=== PATIENT | female | born 1980 | race Two or more races ===

== ENCOUNTER 2022-11-20 16:05 | Inpatient (IN) | payer BC ==
[~2022-11-20] VITALS: Ht 162.6 cm; Wt 57.6 kg
[2022-11-20] MEDS ORDERED: normal saline 1000ML IV soln IVB ONE (16:20)
[2022-11-20] MEDS ORDERED: morphine 4 MG/ML inj SYRINge IV PRN ×2 (16:20→21:40)
[2022-11-20] MEDS ORDERED: ondansetron/PF 4mg/2ml inj IV ONE (16:20)
[2022-11-20 16:55] LABS: BASOPHILS % (AUTO) 0.2 % (0-1); EOSINOPHILS % (AUTO) 0 % (0-6); HEMATOCRIT 46.9 % (35.0-45.0); HEMOGLOBIN 15.4 g/dl (12.0-16.0); LYMPHOCYTES # (AUTO) 0.6 X10'3 (1.1-4.8); LYMPHOCYTES % (AUTO) 3.4 % (21-51); MEAN CORPUSCULAR HEMOGLOBIN 31.2 PG (27.0-31.0); MEAN CORPUSCULAR HGB CONC 32.8 g/dL (33.0-36.5); MEAN CORPUSCULAR VOLUME 95.1 FL (78-98); MEAN PLATELET VOLUME 6.7 FL (7.4-10.4); MONOCYTES % (AUTO) 5.4 % (2-12); NEUTROPHILS # (AUTO) 16.4 X10'3 (1.8-7.7); PLATELET COUNT 427 X10'3 (140-440); RED BLOOD COUNT 4.93 X10'6 (4.20-5.60); RED CELL DISTRIBUTION WIDTH 14.5 % (11.5-14.5)
[2022-11-20 17:03] LABS: ALANINE AMINOTRANSFERASE 30 U/L (12-78); ALBUMIN 2.7 G/DL (3.4-5.0); ALBUMIN/GLOBULIN RATIO 0.5 (1.1-1.5); ALKALINE PHOSPHATASE 115 IU/L (46-116); ANION GAP 9 (8-16); ASPARTATE AMINO TRANSFERASE 34 U/L (10-37); BILIRUBIN,TOTAL 0.5 MG/DL (0.1-1.0); BLOOD UREA NITROGEN 15 MG/DL (7-18); BUN/CREATININE RATIO 17.4 (6.6-38.0); CALCIUM 9.7 MG/DL (8.5-10.1); CHLORIDE 93 MMOL/L (99-107); CREATININE 0.86 MG/DL (0.40-0.90); GLUCOSE 106 MG/DL (70-104); POTASSIUM 4.1 MMOL/L (3.5-5.1); SODIUM 130 MMOL/L (135-145); TOTAL CARBON DIOXIDE 27.9 MMOL/L (24-32); TOTAL PROTEIN 8.3 G/DL (6.4-8.2); eGFR 73 ML/MIN
[2022-11-20 17:25] LABS: PLATELET ESTIMATE NORMAL; TOTAL CELLS COUNTED 100
[2022-11-20] MEDS ORDERED: levoFLOXACIN-Levaquin 500mg/D5 100 ML IV ONE (18:20)
[2022-11-20] MEDS ORDERED: iohexol 300mg/ml 100ml inj. ONE (18:20)
[2022-11-20 18:57] LABS: HCG SERUM QL NEGATIVE
[2022-11-20 19:03] LABS: CLARITY,URINE SLIGHTLY CLOUDY (Clear); COLOR,URINE YELLOW (Yellow); GLUCOSE, URINE NEGATIVE (Neg); KETONES,URINE >=80 mg/dl (Neg); LEUKOCYTE ESTERASE ,URINE NEGATIVE (Neg); NITRITES, URINE NEGATIVE (Neg); OCCULT BLOOD,URINE MODERATE (Neg); PROTEIN,URINE 100 mg/dl (Neg); UROBILINOGEN,URINE 0.2 E.U/dL (0.2-1.0)
[2022-11-20 19:09] LABS: UA COLLECTION TYPE CLN CATCH MIDSTREAM
[2022-11-20 19:11] LABS: BACTERIA,URINE 2+ /HPF (Neg); MUCUS STRANDS FEW /LPF (Neg); SQUAMOUS EPITHELIAL CELL,UR MANY /LPF (FEW); TRANSITIONAL EPI CELLS,URINE FEW /HPF
[2022-11-20 19:12] LABS: RBC,URINE 0-2 /HPF (0-2); WBC,URINE 0-4 /HPF (0-4)
[2022-11-20] MEDS ORDERED: metroNIDAZOLE-Flagyl 500mg/NS 100 ML IV STA (20:24)
[2022-11-20] MEDS ORDERED: CefTRIAXone 2gm/D5W 50ml BAG 50 ML IV ONE (20:25)
[2022-11-20] MEDS ORDERED: ringers solution, lactated 1000ml IV soln IV ONE (20:25)
[2022-11-20] MEDS ORDERED: NO HOME MEDS (21:15)
[2022-11-20] MEDS ORDERED: HYDROmorphone inj. 0.5 MG/0.5 ML DISP.SYRIN IV PRN (21:15)
[2022-11-20] MEDS ORDERED: potassium Cl 20 mEq SR tablet PO PRN ×2 (21:15)
[2022-11-20] MEDS ORDERED: magnesium 4gm in 100ml NS 100 ML IV PRN (21:15)
[2022-11-20] MEDS ORDERED: magnesium Cl slow-release 64mg tablet PO PRN (21:15)
[2022-11-20] MEDS ORDERED: ondansetron/PF 4mg/2ml inj IV PRN ×2 (21:15→21:40)
[2022-11-20] MEDS ORDERED: morphine 2 MG/ML inj. syringe IV PRN ×3 (21:15→21:40)
[2022-11-20] MEDS ORDERED: HYDROcodone/acetaminophen 10/325mg tab PO PRN (21:15)
[2022-11-20] MEDS ORDERED: HYDROmorphone/PF 0.2 MG/ML SYRINGE IV PRN (21:15)
[2022-11-20] MEDS ORDERED: acetaminophen 325mg tablet PO PRN ×2 (21:15)
[2022-11-20] MEDS ORDERED: potassium Cl 40MEQ/1/2NS 520ml 520 ML IV PRN (21:15)
[2022-11-20] MEDS ORDERED: HYDROcodone/acetaminophen 5mg/325mg tablet PO PRN (21:15)
[2022-11-20] MEDS ORDERED: BUPIVAcaine/PF 2.5 mg/ml (0.25%) 30ml vial ONE ×2 (21:37→21:38)
[2022-11-20] MEDS ORDERED: LIDOcaine 1% 30ml preserv. free vial ONE (21:37)
[2022-11-20] MEDS ORDERED: BUPIVACAINE liposomal/PF 13.3 MG/ML vial IM ONE (21:38)
[2022-11-20] MEDS ORDERED: proCHLORperazine 10 MG/2 ml inj IV PRN (21:40)
[2022-11-20] MEDS ORDERED: meperidine/PF 25mg/ml syringe IV PRN (21:40)
[2022-11-20] MEDS ORDERED: ringers solution, lacted 1,000 ML IV SCH (21:40)
[2022-11-20] MEDS ORDERED: fentaNYL /PF 50mcg/ml 5ml ampule ONE (21:44)
[2022-11-20] MEDS ORDERED: rocuronium 10mg/ml inj IV ONE (21:44)
[2022-11-20] MEDS ORDERED: midazolam 1 mg/ML 2ml injection ONE (21:44)
[2022-11-20] MEDS ORDERED: propofol inj 20 ML IV ONE (21:44)
[2022-11-20] MEDS ORDERED: sevoflurane 250ml liquid IH ONE (21:57)
[2022-11-20] MEDS ORDERED: sugammadex 200mg/2ml injection IV ONE (23:48)
[2022-11-21] VITALS (30 sets, daily range): BP systolic 117–146; BP diastolic 75–95
--- NOTE | 2022-11-21 00:06 | NUR ---
Received from OR via BED, accompanied by Anesthesiologist DR PONCE and report given by Anesthesiologist AND MEDICATION COORDINATOR. PT DROWSY, PAINFUL. ABDOMEN W/WOUND VAC W/BLACK FOAM W/CLEAR DRSG COVERING INTACT, S/S DRAINAGE IN TUBING. SETTINGS 100 LCS. ORTIZ CATHETER TO GRAVITY DRAINAGE W/YELLOW URINE IN DRAINAGE BAG. NGT TO RIGHT NARE LCS W/BROWN/YELLOW DRAINAGE IN TUBING. PTS INTO SEE PT. Addendum: 11/21/22 at 0044 by Kala Barros RN Amended: Links added.
[2022-11-21] MEDS: meperidine/PF 25mg/ml syringe IV PRN ×4 (00:17→01:37)
[2022-11-21] MEDS ORDERED: naloxone 0.4 mg/ml inj IV PRN ×2 (00:20→20:50)
[2022-11-21] MEDS ORDERED: HYDROmorph/NS 0.2 mg/ml PCA 100 ML IV SCH ×2 (00:20→00:26)
[2022-11-21] MEDS: HYDROmorph/NS 0.2 mg/ml PCA 100 ML IV SCH ×11 (01:21→23:00)
--- NOTE | 2022-11-21 02:06 | NUR ---
Report called to receiving nurse. Transferred via BED, ONLY Belongings IS A PAIR OF UNDERWARE THAT WAS SENT W/PT TO ROOM 302. RECEVING RN AT BEDSIDE TO RECEIVE PT, BLL, CALL LIGHT GIVEN, SIDE RAILS UP X 2. PT A/O X 4, PAIN MODERATE, DEMONSTRATES USING REFLESHER APPROPRIATELY. Special Issues communicated to receiving nurse. YES. Addendum: 11/21/22 at 0219 by Kala Barros RN Amended: Links added.
[2022-11-21] MEDS: normal saline 1000ml 1,000 ML IV SCH ×4 (02:20→17:15)
[2022-11-21 06:12] LABS: EOSINOPHILS % (AUTO) 0.1 % (0-6); HEMOGLOBIN 16.3 g/dl (12.0-16.0); LYMPHOCYTES # (AUTO) 0.3 X10'3 (1.1-4.8); MEAN CORPUSCULAR HEMOGLOBIN 31.7 PG (27.0-31.0); MONOCYTES # (AUTO) 0.7 X10'3 (0-0.9); PLATELET COUNT 427 X10'3 (140-440); RED BLOOD COUNT 5.14 X10'6 (4.20-5.60)
[2022-11-21 06:14] LABS: BASOPHILS % (AUTO) 0.1 % (0-1); HEMATOCRIT 48.9 % (35.0-45.0); LYMPHOCYTES % (AUTO) 2.2 % (21-51); MEAN CORPUSCULAR HGB CONC 33.2 g/dL (33.0-36.5); MEAN CORPUSCULAR VOLUME 95.2 FL (78-98); MONOCYTES % (AUTO) 4.5 % (2-12); NEUTROPHILS # (AUTO) 14.4 X10'3 (1.8-7.7); NEUTROPHILS % (AUTO) 93.1 % (42-75); RED CELL DISTRIBUTION WIDTH 14.9 % (11.5-14.5); WHITE BLOOD COUNT 15.5 X10'3 (4.5-11.0)
[2022-11-21 06:19] LABS: ALANINE AMINOTRANSFERASE 24 U/L (12-78); ALBUMIN 1.7 G/DL (3.4-5.0); ALBUMIN/GLOBULIN RATIO 0.4 (1.1-1.5); ALKALINE PHOSPHATASE 85 IU/L (46-116); ANION GAP 8 (8-16); ASPARTATE AMINO TRANSFERASE 28 U/L (10-37); BILIRUBIN,TOTAL 0.6 MG/DL (0.1-1.0); BLOOD UREA NITROGEN 15 MG/DL (7-18); BUN/CREATININE RATIO 20.5 (6.6-38.0); CALCIUM 7.8 MG/DL (8.5-10.1); CHLORIDE 103 MMOL/L (99-107); CREATININE 0.73 MG/DL (0.40-0.90); GLUCOSE 157 MG/DL (70-104); POTASSIUM 4.4 MMOL/L (3.5-5.1); SODIUM 135 MMOL/L (135-145); TOTAL CARBON DIOXIDE 23.8 MMOL/L (24-32); TOTAL PROTEIN 5.5 G/DL (6.4-8.2); eGFR 88 ML/MIN
--- NOTE | 2022-11-21 06:30 | NUR ---
Patient in room PCU 3027. I have received report from Zechariah JORGE and had the opportunity to ask questions and assume patient care.
[2022-11-21 07:05] LABS: TOTAL CELLS COUNTED 100
[2022-11-21 07:06] LABS: PLATELET ESTIMATE NORMAL
[2022-11-21] MEDS: heparin, porcine 5000 units/ml vial SQ SCH ×2 (07:48→20:00)
[2022-11-21] MEDS ORDERED: heparin, porcine 5000 units/ml vial SQ SCH (08:00)
[2022-11-21] MEDS ORDERED: ciprofloxacin lact 400MG/200ML 200 ML IV SCH (08:00)
[2022-11-21] MEDS: metroNIDAZOLE-Flagyl 500mg/NS 100 ML IV SCH ×2 (08:29→14:30)
--- NOTE | 2022-11-21 08:52 | NUR ---
Message: [id number] Juliana US called and asked me to clamp ruiz cath for US FYI. I bladder scanned and she has 91 mL. Also patient is requesting ice chips. Thank you Eulalia JORGE [phone] Transaction number: [id number]
--- NOTE | 2022-11-21 10:00 | NUR ---
Patient requesting ice chips. Asked Dr. Estevez he states that is fine.
[2022-11-21] MEDS ORDERED: diatr meglu/diatrizoate 30ml oral sol.-(3 dose) bottle ONE (13:01)
[2022-11-21] MEDS ORDERED: iohexol 300mg/ml 100ml inj. ONE (13:02)
--- NOTE | 2022-11-21 13:30 | NUR ---
Patient went to CT. Transfered onto [facility] via slide board
--- NOTE | 2022-11-21 17:00 | NUR ---
Spoke with Dr. Estevez about what the plan is. Plan is to take patient back to OR and remove wound vac and close incision. Addendum: 11/21/22 at 1826 by ALLYSON AGEE LVN He said he will come see the patient around 1800
--- NOTE | 2022-11-21 18:25 | NUR ---
Problems reprioritized. Patient report given, questions answered & plan of care reviewed with Leah DSOUZA.
[2022-11-21] MEDS ORDERED: sevoflurane 250ml liquid IH ONE (18:52)
[2022-11-21] MEDS ORDERED: LIDOcaine 2% (20mg/ml) 5ml vial ONE (18:52)
[2022-11-21] MEDS ORDERED: dexamethasone sod phosphate 4mg/ml inj. ONE (18:52)
--- NOTE | 2022-11-21 18:54 | NUR ---
PT WAS TAKEN TO OR VIA HOSPITAL BED.
[2022-11-21] MEDS ORDERED: morphine 2 MG/ML inj. syringe IV PRN (18:55)
[2022-11-21] MEDS ORDERED: proCHLORperazine 10 MG/2 ml inj IV PRN (18:55)
[2022-11-21] MEDS ORDERED: ringers solution, lacted 1,000 ML IV SCH (18:55)
[2022-11-21] MEDS ORDERED: meperidine/PF 25mg/ml syringe IV PRN ×3 (18:55)
[2022-11-21] MEDS ORDERED: morphine 4 MG/ML inj SYRINge IV PRN (18:55)
[2022-11-21] MEDS ORDERED: ondansetron/PF 4mg/2ml inj IV PRN (18:55)
[2022-11-21] MEDS ORDERED: midazolam 1 mg/ML 2ml injection ONE (18:58)
[2022-11-21] MEDS ORDERED: fentaNYL /PF 50mcg/ml 5ml ampule ONE (18:59)
[2022-11-21] MEDS ORDERED: propofol inj 20 ML IV ONE (19:16)
[2022-11-21] MEDS ORDERED: rocuronium 10mg/ml inj IV ONE (19:16)
[2022-11-21] MEDS ORDERED: ondansetron/PF 4mg/2ml inj ONE (19:24)
[2022-11-21] MEDS ORDERED: BUPIVACAINE liposomal/PF 13.3 MG/ML vial IM ONE ×2 (19:26→20:07)
[2022-11-21] MEDS ORDERED: BUPIVAcaine 0.5% inj/PF 30 ML ONE (19:26)
[2022-11-21] MEDS ORDERED: BUPIVAcaine 0.5% inj/PF 30 ml vial IJ ONE (20:09)
[2022-11-21] MEDS ORDERED: acetaminophen 1,000mg/100ml IV 100 ML IV ONE (20:26)
--- NOTE | 2022-11-21 20:50 | NUR ---
PT ARRIVED TO RR VIA BED ACCOMPANIED BY DR. BETTS- ANESTHESIA REPORT GIVEN, PT WAKING UP, VSS, SCDS ON, NG TO RIGHT NARE-LOW CONT SXN WITH SMALL AMOUNT OF DARK GREEN OUTPUT, F/C DRAINING MED COLORED YELLOW URINE, TEODORO WITH GOOD SXN AND SMALL AMOUNT OF RED DRAINAGE NOTED AND ISLAND DRSG PRESENT TO ABD-CDI, 20G PIV'S TO BILAT A/C, NEURO INTACT
--- NOTE | 2022-11-21 22:10 | NUR ---
PT DOING WELL, VSS, DENIES PAIN-BLOCK WORKING WELL, DILAUDID CADD REATTACHED AND READY FOR USE, NO CHANGES IN ASSESSMENT, TEODORO EMPTIED-35CC RED DRAINAGE, DRSG-CDI, PT TOLERATING ICE CHIPS-NO N/V, NG TO LOW CONT SXN, REPORT CALLED TO YRN RN-ALL QUESTIONS ANSWERED, PT TAKEN BACK TO ROOM 3027A-FAMILY IN ROOM ALREADY, PT HOOKED UP TO VS MONITOR, BED LOW AND LOCKED, CALL LIGHT IN REACH, CHAIR MENDER BUTTON IN REACH WELL, PRIMARY RN IN TO ACCEPT PT.
[2022-11-22] MEDS: cefepime 1GM/NS ADD-VANTAGE 100 ML IV SCH ×3 (00:17→20:47)
[2022-11-22] MEDS: HYDROmorph/NS 0.2 mg/ml PCA 100 ML IV SCH ×12 (01:00→23:00)
[2022-11-22] MEDS: clindamycin-Cleocin 900mg/D5W 50 ML IV SCH ×3 (01:02→16:10)
[2022-11-22 03:00] VITALS: BP 126/80
[2022-11-22 06:00] VITALS: BP 115/70
[2022-11-22 06:14] LABS: BASOPHILS % (AUTO) 0.2 % (0-1); EOSINOPHILS % (AUTO) 0 % (0-6); HEMATOCRIT 40.1 % (35.0-45.0); HEMOGLOBIN 13.1 g/dl (12.0-16.0); LYMPHOCYTES # (AUTO) 0.6 X10'3 (1.1-4.8); LYMPHOCYTES % (AUTO) 3.2 % (21-51); MEAN CORPUSCULAR HEMOGLOBIN 31.6 PG (27.0-31.0); MEAN CORPUSCULAR HGB CONC 32.7 g/dL (33.0-36.5); MEAN CORPUSCULAR VOLUME 96.5 FL (78-98); MEAN PLATELET VOLUME 6.7 FL (7.4-10.4); MONOCYTES # (AUTO) 0.8 X10'3 (0-0.9); MONOCYTES % (AUTO) 4.6 % (2-12); PLATELET COUNT 392 X10'3 (140-440); RED BLOOD COUNT 4.16 X10'6 (4.20-5.60); RED CELL DISTRIBUTION WIDTH 15.4 % (11.5-14.5); WHITE BLOOD COUNT 18.5 X10'3 (4.5-11.0)
[2022-11-22 06:19] LABS: ALANINE AMINOTRANSFERASE 17 U/L (12-78); ALBUMIN 1.6 G/DL (3.4-5.0); ALBUMIN/GLOBULIN RATIO 0.4 (1.1-1.5); ALKALINE PHOSPHATASE 74 IU/L (46-116); ANION GAP 3 (8-16); ASPARTATE AMINO TRANSFERASE 29 U/L (10-37); BILIRUBIN,TOTAL 0.5 MG/DL (0.1-1.0); BLOOD UREA NITROGEN 11 MG/DL (7-18); BUN/CREATININE RATIO 14.9 (6.6-38.0); CALCIUM 7.3 MG/DL (8.5-10.1); CHLORIDE 106 MMOL/L (99-107); CREATININE 0.74 MG/DL (0.40-0.90); GLUCOSE 130 MG/DL (70-104); MAGNESIUM 2.6 MG/DL (1.5-2.4); PHOSPHORUS 2.4 MG/DL (2.3-4.5); POTASSIUM 4.3 MMOL/L (3.5-5.1); SODIUM 136 MMOL/L (135-145); TOTAL CARBON DIOXIDE 27.2 MMOL/L (24-32); TOTAL PROTEIN 5.3 G/DL (6.4-8.2); eGFR 87 ML/MIN
--- NOTE | 2022-11-22 07:00 | NUR ---
Patient in room PCU 3027. I have received report from MEET Lynn and had the opportunity to ask questions and assume patient care.
--- NOTE | 2022-11-22 07:04 | NUR ---
Report to Michelle trevino
[2022-11-22] MEDS: heparin, porcine 5000 units/ml vial SQ SCH ×2 (09:11→20:54)
[2022-11-22 11:00] VITALS: BP 125/84
--- NOTE | 2022-11-22 14:35 | NUR ---
Spoke with pharmacy and requested new bag for the CADD pump. Pharmacy will prepare and send it up.
[2022-11-22 15:00] VITALS: BP 134/75
[2022-11-22] MEDS: PCA waste documentation MC SCH (15:25)
[2022-11-22 18:00] VITALS: BP 127/80
--- NOTE | 2022-11-22 19:00 | NUR ---
Problems reprioritized. Patient report given, questions answered & plan of care reviewed with Jaime;MEET juarez.
[2022-11-22 22:00] VITALS: BP 129/82
[2022-11-22] MEDS: doxycycline inj 100 MG in normal saline 100ml IV soln 100 ML IV SCH (22:08)
[2022-11-23] MEDS: normal saline 1000ml 1,000 ML IV SCH (00:20)
[2022-11-23] MEDS: clindamycin-Cleocin 900mg/D5W 50 ML IV SCH ×3 (00:22→18:43)
[2022-11-23] MEDS: HYDROmorph/NS 0.2 mg/ml PCA 100 ML IV SCH ×12 (01:00→23:00)
[2022-11-23 02:00] VITALS: BP 129/89
--- NOTE | 2022-11-23 06:18 | NUR ---
Report given to Kayla JORGE
[2022-11-23 07:22] LABS: BASOPHILS % (AUTO) 0.2 % (0-1); EOSINOPHILS % (AUTO) 0 % (0-6); HEMATOCRIT 36.4 % (35.0-45.0); HEMOGLOBIN 12.2 g/dl (12.0-16.0); LYMPHOCYTES # (AUTO) 1.4 X10'3 (1.1-4.8); LYMPHOCYTES % (AUTO) 9.2 % (21-51); MEAN CORPUSCULAR HEMOGLOBIN 31.5 PG (27.0-31.0); MEAN CORPUSCULAR HGB CONC 33.4 g/dL (33.0-36.5); MEAN CORPUSCULAR VOLUME 94.5 FL (78-98); MEAN PLATELET VOLUME 6.4 FL (7.4-10.4); MONOCYTES % (AUTO) 6.5 % (2-12); NEUTROPHILS # (AUTO) 12.5 X10'3 (1.8-7.7); NEUTROPHILS % (AUTO) 84.1 % (42-75); PLATELET COUNT 490 X10'3 (140-440); RED BLOOD COUNT 3.86 X10'6 (4.20-5.60); RED CELL DISTRIBUTION WIDTH 14.9 % (11.5-14.5); WHITE BLOOD COUNT 14.8 X10'3 (4.5-11.0)
[2022-11-23 07:53] LABS: ALANINE AMINOTRANSFERASE 22 U/L (12-78); ALBUMIN 1.9 G/DL (3.4-5.0); ALBUMIN/GLOBULIN RATIO 0.5 (1.1-1.5); ALKALINE PHOSPHATASE 81 IU/L (46-116); ANION GAP 6 (8-16); ASPARTATE AMINO TRANSFERASE 54 U/L (10-37); BILIRUBIN,TOTAL 0.4 MG/DL (0.1-1.0); BLOOD UREA NITROGEN 15 MG/DL (7-18); BUN/CREATININE RATIO 21.1 (6.6-38.0); CALCIUM 8.3 MG/DL (8.5-10.1); CHLORIDE 103 MMOL/L (99-107); CREATININE 0.71 MG/DL (0.40-0.90); GLUCOSE 90 MG/DL (70-104); MAGNESIUM 2.4 MG/DL (1.5-2.4); PHOSPHORUS 1.8 MG/DL (2.3-4.5); POTASSIUM 3.5 MMOL/L (3.5-5.1); SODIUM 136 MMOL/L (135-145); TOTAL CARBON DIOXIDE 26.7 MMOL/L (24-32); TOTAL PROTEIN 6.1 G/DL (6.4-8.2); eGFR > 90 ML/MIN
[2022-11-23] MEDS: heparin, porcine 5000 units/ml vial SQ SCH ×2 (08:55→20:19)
[2022-11-23] MEDS: cefepime 1GM/NS ADD-VANTAGE 100 ML IV SCH ×2 (10:11→20:19)
[2022-11-23] MEDS: dextrose 5%-water 1,000 ML IV SCH (11:05)
[2022-11-23] MEDS: doxycycline inj 100 MG in normal saline 100ml IV soln 100 ML IV SCH ×2 (11:35→21:35)
--- NOTE | 2022-11-23 17:46 | NUR ---
Patient in room GUERO 350. I have received report from Kayla JORGE and had the opportunity to ask questions and assume patient care.
--- NOTE | 2022-11-23 17:47 | NUR ---
I AGREE WITH LUISITO MONTERROSO ASSESSMENT.
[2022-11-23 18:20] VITALS: BP 143/89
--- NOTE | 2022-11-23 18:20 | NUR ---
Patient arrived to floor via hosp bed accompanied by Kayla JORGE, patient's and son. VS obtained, NG tube connected to low cont wall suction. Patient is AOx4, orientation provided to new room and call light system, patient states understanding. ROLL SLICING MACHINE TENDER pump Dilaudid noted 0.2mg. All needs met at this time, Prudence RN at bedside to assist in welcoming patient to floor.
--- NOTE | 2022-11-23 18:32 | NUR ---
Problems reprioritized. Patient report given, questions answered & plan of care reviewed with Prudence RN.
--- NOTE | 2022-11-23 19:14 | NUR ---
Patient in room GUERO 350. I have received report from JEAN JORGE and had the opportunity to ask questions and assume patient care.
[2022-11-23 22:00] VITALS: BP 129/83
[2022-11-24] MEDS: clindamycin-Cleocin 900mg/D5W 50 ML IV SCH ×3 (00:04→16:35)
[2022-11-24] MEDS: dextrose 5%-water 1,000 ML IV SCH ×2 (00:25→04:57)
[2022-11-24] MEDS: HYDROmorph/NS 0.2 mg/ml PCA 100 ML IV SCH ×12 (01:00→23:00)
--- NOTE | 2022-11-24 05:49 | NUR ---
FC DISCONTINUED PER MD ORDER.
--- NOTE | 2022-11-24 06:31 | NUR ---
Problems reprioritized. Patient report given, questions answered & plan of care reviewed with ALMA ROSA RN.
--- NOTE | 2022-11-24 06:46 | NUR ---
Patient in room GUERO 350. I have received report from HUGO DSOUZA and had the opportunity to ask questions and assume patient care.
[2022-11-24 06:54] VITALS: BP 128/92
[2022-11-24 07:00] LABS: BASOPHILS % (AUTO) 0.2 % (0-1); EOSINOPHILS % (AUTO) 0.2 % (0-6); HEMATOCRIT 38.6 % (35.0-45.0); HEMOGLOBIN 12.7 g/dl (12.0-16.0); LYMPHOCYTES # (AUTO) 1.7 X10'3 (1.1-4.8); LYMPHOCYTES % (AUTO) 16.5 % (21-51); MEAN CORPUSCULAR HGB CONC 32.9 g/dL (33.0-36.5); MEAN CORPUSCULAR VOLUME 94.3 FL (78-98); MEAN PLATELET VOLUME 6.6 FL (7.4-10.4); MONOCYTES # (AUTO) 0.9 X10'3 (0-0.9); MONOCYTES % (AUTO) 8.5 % (2-12); NEUTROPHILS # (AUTO) 7.5 X10'3 (1.8-7.7); NEUTROPHILS % (AUTO) 74.6 % (42-75); PLATELET COUNT 561 X10'3 (140-440); RED BLOOD COUNT 4.09 X10'6 (4.20-5.60); RED CELL DISTRIBUTION WIDTH 14.9 % (11.5-14.5)
[2022-11-24 07:17] LABS: ALANINE AMINOTRANSFERASE 32 U/L (12-78); ALBUMIN/GLOBULIN RATIO 0.5 (1.1-1.5); ALKALINE PHOSPHATASE 100 IU/L (46-116); ANION GAP 9 (8-16); ASPARTATE AMINO TRANSFERASE 57 U/L (10-37); BILIRUBIN,TOTAL 0.4 MG/DL (0.1-1.0); BLOOD UREA NITROGEN 13 MG/DL (7-18); BUN/CREATININE RATIO 20.3 (6.6-38.0); CALCIUM 8.4 MG/DL (8.5-10.1); CHLORIDE 103 MMOL/L (99-107); CREATININE 0.64 MG/DL (0.40-0.90); GLUCOSE 127 MG/DL (70-104); MAGNESIUM 2.2 MG/DL (1.5-2.4); PHOSPHORUS 2.2 MG/DL (2.3-4.5); POTASSIUM 3.4 MMOL/L (3.5-5.1); SODIUM 139 MMOL/L (135-145); TOTAL CARBON DIOXIDE 27.3 MMOL/L (24-32); TOTAL PROTEIN 6.3 G/DL (6.4-8.2); eGFR > 90 ML/MIN
[2022-11-24 07:40] LABS: PLATELET ESTIMATE INCREASED; STOMATOCYTES 1+; TOTAL CELLS COUNTED 100
[2022-11-24] MEDS: heparin, porcine 5000 units/ml vial SQ SCH ×2 (09:02→20:00)
[2022-11-24] MEDS: doxycycline inj 100 MG in normal saline 100ml IV soln 100 ML IV SCH ×2 (09:42→20:00)
[2022-11-24 10:00] VITALS: BP 140/93
[2022-11-24] MEDS: cefepime 1GM/NS ADD-VANTAGE 100 ML IV SCH ×2 (11:13→20:01)
[2022-11-24] MEDS: dextrose 5%-lactated ringers 1,000 ML IV SCH ×2 (12:19→19:59)
--- NOTE | 2022-11-24 12:19 | NUR ---
Initial: Pt admit for SBO, found to have peritonitis and internal hernia. Pt currently POD #4 s/p exploratory laparotomy with wound VAC placement and POD #3 reexploration, appendectomy and abdominal wall closure. Pt no longer with a wound VAC per MD notes. Diet was advanced from NPO to ice chips, sips, and popsicles 3. NGT remains in place though no documentation of output in I&O since 11/21. Pt receiving routine D5LR at 100 mL/hr providing 408 kcal/day. Recommend initiating nutrition support if PO diet unable to be advanced further soon as pt currently day 4 with an insufficient diet since admit and with poor PO intake SENIOR PROJECT COORDINATOR per H&P. LBM 3/, with hypoactive bowel sounds. Routine Reglan added to med list today. Will continue to follow closely. Recommendations: 1) Advance to regular diet as medically indicated 2) Initiate nutrition support if unable to advance PO diet 3) Routine prokinetic agent per MD 4) Weekly scaled weights Addendum: 11/24/22 at [address] Amended: Links added.
[2022-11-24] MEDS: metoclopramide 5 mg/ml inj IV SCH ×2 (14:31→19:59)
[2022-11-24 18:00] VITALS: BP 131/86
--- NOTE | 2022-11-24 18:27 | NUR ---
Problems reprioritized. Patient report given, questions answered & plan of care reviewed with Prudence RN.
--- NOTE | 2022-11-24 18:52 | NUR ---
Patient in room [facility] 351. I have received report from ALMA ROSA DSOUZA and had the opportunity to ask questions and assume patient care.
[2022-11-24 22:00] VITALS: BP 140/92
[2022-11-25] MEDS: clindamycin-Cleocin 900mg/D5W 50 ML IV SCH ×2 (00:30→08:40)
[2022-11-25] MEDS: HYDROmorph/NS 0.2 mg/ml PCA 100 ML IV SCH ×7 (01:00→13:00)
[2022-11-25] MEDS: metoclopramide 5 mg/ml inj IV SCH ×4 (01:46→20:20)
[2022-11-25] MEDS: dextrose 5%-lactated ringers 1,000 ML IV SCH ×2 (04:00→15:48)
[2022-11-25 06:23] LABS: BASOPHILS % (AUTO) 0.2 % (0-1); EOSINOPHILS % (AUTO) 0.2 % (0-6); LYMPHOCYTES # (AUTO) 1.1 X10'3 (1.1-4.8); MEAN PLATELET VOLUME 6.7 FL (7.4-10.4); MONOCYTES # (AUTO) 0.7 X10'3 (0-0.9); RED CELL DISTRIBUTION WIDTH 14.6 % (11.5-14.5)
--- NOTE | 2022-11-25 06:24 | NUR ---
Patient in room GUERO 351. I have received report from HUGO DSOUZA and had the opportunity to ask questions and assume patient care.
[2022-11-25 06:27] LABS: HEMATOCRIT 39.1 % (35.0-45.0); HEMOGLOBIN 13.2 g/dl (12.0-16.0); LYMPHOCYTES % (AUTO) 9.9 % (21-51); MEAN CORPUSCULAR HEMOGLOBIN 31.6 PG (27.0-31.0); MEAN CORPUSCULAR HGB CONC 33.7 g/dL (33.0-36.5); MEAN CORPUSCULAR VOLUME 93.6 FL (78-98); MONOCYTES % (AUTO) 6.5 % (2-12); NEUTROPHILS # (AUTO) 9.2 X10'3 (1.8-7.7); NEUTROPHILS % (AUTO) 83.2 % (42-75); PLATELET COUNT 629 X10'3 (140-440); RED BLOOD COUNT 4.17 X10'6 (4.20-5.60)
[2022-11-25 06:29] VITALS: BP 128/75
[2022-11-25 06:29] LABS: ALANINE AMINOTRANSFERASE 75 U/L (12-78); ALBUMIN 2.1 G/DL (3.4-5.0); ALBUMIN/GLOBULIN RATIO 0.5 (1.1-1.5); ALKALINE PHOSPHATASE 108 IU/L (46-116); ANION GAP 8 (8-16); ASPARTATE AMINO TRANSFERASE 98 U/L (10-37); BILIRUBIN,TOTAL 0.5 MG/DL (0.1-1.0); BLOOD UREA NITROGEN 10 MG/DL (7-18); BUN/CREATININE RATIO 14.9 (6.6-38.0); CALCIUM 8.6 MG/DL (8.5-10.1); CHLORIDE 104 MMOL/L (99-107); CREATININE 0.67 MG/DL (0.40-0.90); GLUCOSE 143 MG/DL (70-104); MAGNESIUM 2.1 MG/DL (1.5-2.4); PHOSPHORUS 3.1 MG/DL (2.3-4.5); POTASSIUM 3.2 MMOL/L (3.5-5.1); SODIUM 142 MMOL/L (135-145); TOTAL CARBON DIOXIDE 30.1 MMOL/L (24-32); TOTAL PROTEIN 6.5 G/DL (6.4-8.2); eGFR > 90 ML/MIN
[2022-11-25 07:37] LABS: PLATELET ESTIMATE INCREASED; TOTAL CELLS COUNTED 100; TOXIC GRANULATION 1+
--- NOTE | 2022-11-25 08:19 | NUR ---
PAGER ID: [phone] MESSAGE: ALMA ROSA SURG [id number] RE: [phone] RODRIGUEZ, A PATIENT HAS A POTASSIUM OF 3.2, WOULD YOU LIKE ME TO ADD ON THE REPLACEMENT PROTOCOL. THANKS
[2022-11-25] MEDS ORDERED: potassium Cl 40MEQ/1/2NS 520ml 520 ML IV PRN (08:25)
[2022-11-25] MEDS ORDERED: magnesium Cl slow-release 64mg tablet PO PRN (08:25)
[2022-11-25] MEDS ORDERED: potassium Cl 20 mEq SR tablet PO PRN ×2 (08:25)
[2022-11-25] MEDS ORDERED: magnesium 4gm in 100ml NS 100 ML IV PRN (08:25)
[2022-11-25] MEDS: heparin, porcine 5000 units/ml vial SQ SCH ×2 (08:33→20:20)
[2022-11-25 10:00] VITALS: BP 119/79
[2022-11-25] MEDS: doxycycline inj 100 MG in normal saline 100ml IV soln 100 ML IV SCH (10:00)
[2022-11-25] MEDS: cefepime 1GM/NS ADD-VANTAGE 100 ML IV SCH (11:18)
[2022-11-25] MEDS: POTASSIUM BICARB 20meq eff tab 20 MEQ TABLET.EFF PO PRN ×3 (11:51→21:13)
[2022-11-25] MEDS ORDERED: HYDROcodone/acetaminophen 10/325mg tab PO PRN (12:15)
[2022-11-25] MEDS ORDERED: morphine 2 MG/ML inj. syringe IV PRN ×2 (12:15)
[2022-11-25] MEDS ORDERED: HYDROcodone/acetaminophen 5mg/325mg tablet PO PRN (12:15)
[2022-11-25] MEDS: PCA waste documentation MC SCH (13:45)
[2022-11-25 18:00] VITALS: BP 123/84
--- NOTE | 2022-11-25 18:49 | NUR ---
Problems reprioritized. Patient report given, questions answered & plan of care reviewed with Ann DSOUZA.
--- NOTE | 2022-11-25 18:50 | NUR ---
Patient in room [facility]ERO 351. I have received report from MEET [place] and had the opportunity to ask questions and assume patient care.Patient resting comfortably on bed, family at bedside. She has no complaints of needs at this time, I will continue to monitor.
[2022-11-25] MEDS: K and/or MAG REPLACEMENT MC SCH (20:00)
[2022-11-25] MEDS: metroNIDAZOLE-Flagyl 500mg/NS 100 ML IV SCH (20:20)
[2022-11-25] MEDS: ciprofloxacin lact 400MG/200ML 200 ML IV SCH (20:22)
[2022-11-25 22:00] VITALS: BP 137/93
[2022-11-26] MEDS: dextrose 5%-lactated ringers 1,000 ML IV SCH ×2 (02:29)
[2022-11-26] MEDS: metoclopramide 5 mg/ml inj IV SCH ×4 (02:30→21:03)
--- NOTE | 2022-11-26 06:36 | NUR ---
Problems reprioritized. Patient report given, questions answered & plan of care reviewed with MEET Lopez.
[2022-11-26 06:58] LABS: PHOSPHORUS 2.7 MG/DL (2.3-4.5); POTASSIUM 3.5 MMOL/L (3.5-5.1)
[2022-11-26 07:02] VITALS: BP 132/88
[2022-11-26] MEDS: ciprofloxacin lact 400MG/200ML 200 ML IV SCH (07:13)
--- NOTE | 2022-11-26 07:15 | NUR ---
cOMPUTER EQUIPMENT NOT WORKING PROPERLY. VERIFIED ALLERGIES,MEDICATIONS, AND IDENTIFICATION MANUALLY.
[2022-11-26] MEDS: K and/or MAG REPLACEMENT MC SCH ×2 (08:00→20:00)
[2022-11-26] MEDS: metroNIDAZOLE-Flagyl 500mg/NS 100 ML IV SCH (08:00)
[2022-11-26] MEDS: heparin, porcine 5000 units/ml vial SQ SCH ×2 (08:00→21:07)
[2022-11-26 11:47] VITALS: BP 131/79
[2022-11-26] MEDS: CefTRIAXone 2gm/D5W 50ml BAG 50 ML IV SCH (16:31)
--- NOTE | 2022-11-26 16:34 | NUR ---
PAGER ID: [phone] MESSAGE: Annita Catalan [phone] Does this pt. need D5 in LR? Can she have NS? Jessica [phone]
[2022-11-26] MEDS: DOXYCYCLINE 100MG CAPSULE PO SCH (17:10)
[2022-11-26 18:00] VITALS: BP 140/85
--- NOTE | 2022-11-26 18:15 | NUR ---
Gave report to Jessa Germain RN.
[2022-11-26 22:00] VITALS: BP 125/71
[2022-11-27] MEDS: metroNIDAZOLE-Flagyl 500mg/NS 100 ML IV SCH ×3 (00:29→16:40)
[2022-11-27] MEDS: metoclopramide 5 mg/ml inj IV SCH ×3 (02:54→13:54)
[2022-11-27 06:00] VITALS: BP 125/72
--- NOTE | 2022-11-27 06:30 | NUR ---
Problems reprioritized. Patient report given, questions answered & plan of care reviewed with TROY DSOUZA.
[2022-11-27] MEDS: heparin, porcine 5000 units/ml vial SQ SCH (07:09)
[2022-11-27] MEDS: K and/or MAG REPLACEMENT MC SCH (07:09)
[2022-11-27] MEDS: DOXYCYCLINE 100MG CAPSULE PO SCH ×2 (09:38→16:40)
[2022-11-27] MEDS: CefTRIAXone 2gm/D5W 50ml BAG 50 ML IV SCH (09:38)
[2022-11-27 10:38] VITALS: BP 125/78
--- NOTE | 2022-11-27 12:54 | NUR ---
F/u 11/27: Pt NG removed advanced to clear liquids WS 11/25 then full liquids WS 11/26 PO 100% first two of 3 clears and 100% first full liquids diet per EMR. Overall not meeting needs given initial 5 days NPO w/ restrictive diets. RD recommends Junior smoothie BIDBD and Ensure High Protein WL to assist meeting needs; MD notified. LBM 11/26 receiving routine reglan per EMR. Will monitor for diet advancement and further nutrition intervention needs this admit. Recommendations: 1) Continue full liquids diet per MD; advance to regular diet as medically indicated 2) Junior smoothie BIDBD and Ensure High Protein WL to assist meeting needs; pending physician verification in EMR 3) Routine prokinetic agent per MD 4) Weekly scaled weights Addendum: 11/27/22 at [address] Amended: Links added.
[2022-11-27] MEDS ORDERED: DOXY100C2 PO (15:21)
[2022-11-27] MEDS ORDERED: METR-159 PO (15:21)
--- NOTE | 2022-11-27 16:49 | NUR ---
Pt. requesting PCP referral. Spoke with Luly in [place]- states she will speak with co-staff regarding a [facility] group referral. Pt. also aware she can call her [employer] insurance.
[2022-11-27] MEDS ORDERED: JUVEN Smoothie Arginine/Glut./Ca2+Bmb (Juven 19.3pkt) 240ml cup PO SCH (17:30)
--- NOTE | 2022-11-27 17:31 | NUR ---
DISCHARGE NOTE: Reviewed discharge paperwork w/ pt. She is aware to call [facility] in AM to schedule sabrina. for Saturday to have calderon removed. Diet as tolerated and showers ok. Discussed s/sx of infection with good verbal feedback. Talked about incisional care and when she would need to call the MD. Pt. does not c/o pain. Discussed antibiotics which have been e-scripted to preferred pharmacy and possible ASE. Pt. finishing up Flagyl IV dose before PIV DC'd. here waiting to give ride home. Pt. is responsible for all her belongings.
[2022-11-28] MEDS ORDERED: CIPR-202 PO (08:04)
--- NOTE | 2022-11-28 08:10 | NUR ---
Hospitalist ordered 3rd antibiotic for home- Cipro. contacted and made aware. Pt. is still sleeping, but they will go to pharmacy soon.
[2022-11-28] MEDS ORDERED: lactose-reduced food (Ensure High Protein) 237ml bottle PO SCH (12:30)
== END 2022-11-27 18:19 | disposition home or self-care (01) | DRG 853 ==
LOC: ER 16:06 → PCU 3S 21:19 → SUR 3N 11-23 15:48
PROVIDERS: ADMIT Internal Medicine; ATTEND Family Medicine
PROC: BW211ZZ Computerized Tomography (CT Scan) of Abdomen and Pelvis using Low Osmolar Contrast (ICD-10-PCS; 2022-11-20)
PROC: 0DTJ0ZZ Resection of Appendix, Open Approach (ICD-10-PCS; 2022-11-21)
PROC: 0WQF0ZZ Repair Abdominal Wall, Open Approach (ICD-10-PCS; 2022-11-21)
PROC: 2W13X6Z Compression of Abdominal Wall using Pressure Dressing (ICD-10-PCS; 2022-11-21)
PROC: 3E0T3BZ Introduction of Anesthetic Agent into Peripheral Nerves and Plexi, Percutaneous Approach (ICD-10-PCS; 2022-11-21)
PROC: BW211ZZ Computerized Tomography (CT Scan) of Abdomen and Pelvis using Low Osmolar Contrast (ICD-10-PCS; 2022-11-21)
PROC: 0W9G0ZZ Drainage of Peritoneal Cavity, Open Approach (ICD-10-PCS; principal; 2022-11-21 18:52)
PROC: 0UPDXHZ Removal of Contraceptive Device from Uterus and Cervix, External Approach (ICD-10-PCS; 2022-11-22)
PROC: 0D9670Z Drainage of Stomach with Drainage Device, Via Natural or Artificial Opening (ICD-10-PCS; 2022-11-24)
DX: A41.9 Sepsis, unspecified organism (principal); K65.0 Generalized (acute) peritonitis; K46.0 Unspecified abdominal hernia with obstruction, without gangrene; K56.7 Ileus, unspecified; E87.6 Hypokalemia; D75.839 Thrombocytosis, unspecified; N73.6 Female pelvic peritoneal adhesions (postinfective); N92.6 Irregular menstruation, unspecified; Z88.0 Allergy status to penicillin
CPT/HCPCS: 99291; Z7506; Z7508; 36415; 74177; 76856; 80053; 81001; 83605; 83735; 84100; 84132; 84145; 84702; 84703; 85007; 85025; 87040; 87070; 87075; 87081; 97116; 97161; 97530; A4215; A4618; A4649; A5200; A6213; A6449; A7000; C1758; C9290; G0378; J0131; J0692; J0696; J0744; J1100; J1170; J1644; J1956; J2175; J2250; J2270; J2405; J2704; J2765; J3010; J3490; J7030; J7042; J7070; J7120; J7121; Q9963; Q9967; S0020